=== PATIENT | female | born 1985 | race Two or more races ===

== ENCOUNTER 2020-11-16 11:26 | Emergency (ER) | payer MEDICAID ==
[~2020-11-16] VITALS: Ht 160 cm; Wt 111.6 kg
[2020-11-16 12:21] VITALS: BP 136/81
[2020-11-16] MEDS ORDERED: PENICILLIN G BENZ 1200000 UNITS/2 ML SYRG IM ONE (12:45)
== END 2020-11-16 13:30 | disposition home or self-care (01) ==
LOC: ER 11:26
DX: O26.892 Other specified pregnancy related conditions, second trimester (principal); O98.112 Syphilis complicating pregnancy, second trimester; Z3A.28 28 weeks gestation of pregnancy
CPT/HCPCS: 96372; 99283; J0561

== ENCOUNTER 2020-11-23 11:29 | Emergency (ER) | payer MEDICAID ==
[~2020-11-23] VITALS: Ht 154.9 cm; Wt 111.6 kg
[2020-11-23 12:18] VITALS: BP 145/88
[2020-11-23] MEDS ORDERED: PENICILLIN G BENZ 1200000 UNITS/2 ML SYRG IM ONE (12:45)
== END 2020-11-23 13:18 | disposition home or self-care (01) ==
LOC: ER 11:29
DX: O26.893 Other specified pregnancy related conditions, third trimester (principal); O98.113 Syphilis complicating pregnancy, third trimester; Z3A.34 34 weeks gestation of pregnancy
CPT/HCPCS: 96372; 99283; J0561

== ENCOUNTER 2020-11-30 08:58 | Emergency (ER) | payer MEDICAID ==
[~2020-11-30] VITALS: Ht 154.9 cm; Wt 111.6 kg
[2020-11-30 10:57] VITALS: BP 129/66
[2020-11-30] MEDS ORDERED: PENICILLIN G BENZ 1200000 UNITS/2 ML SYRG IM ONE (11:15)
== END 2020-11-30 12:13 | disposition home or self-care (01) ==
LOC: ER 08:58
DX: Z51.81 Encounter for therapeutic drug level monitoring (principal); O26.893 Other specified pregnancy related conditions, third trimester; A53.9 Syphilis, unspecified; Z3A.30 30 weeks gestation of pregnancy
CPT/HCPCS: 96372; 99283; J0561

== ENCOUNTER 2021-01-13 14:27 | Observation (INO) | payer MEDICAID | END 2021-01-13 15:40 | disposition home or self-care (01) | LOC: LDRP 14:27 | PROVIDERS: ADMIT Obstetrics & Gynecology; ATTEND Obstetrics & Gynecology | DX: O62.9 Abnormality of forces of labor, unspecified (principal); Z3A.37 37 weeks gestation of pregnancy; Z98.891 History of uterine scar from previous surgery | CPT/HCPCS: 59025; 81002; 94760; G0378 ==

== ENCOUNTER 2021-01-27 03:55 | Inpatient (IN) | payer MEDICAID ==
[2021-01-27] VITALS (18 sets, daily range): BP systolic 121–145; BP diastolic 55–94
[~2021-01-27] VITALS: Ht 154.9 cm; Wt 118.8 kg
[2021-01-27] MEDS ORDERED: ceFAZolin 1GM/50ML 50 ML IV ONE (04:15)
[2021-01-27] MEDS ORDERED: LACTATED RINGER'S 1,000 ML IV ONE (04:15)
[2021-01-27 05:47] LABS: Basophils # (auto) 0.1 10 ^3/uL (0-0.2); Basophils % (auto) 0.8 % (0.0-2.0); Eosinophils # (auto) 0.1 10 ^3/uL (0-0.8); Eosinophils % (auto) 1.4 % (0.0-7.0); Hematocrit 33.6 % (36.0-46.0); Hemoglobin 11.4 g/dL (12.2-16.2); Lymphocytes # (auto) 2.2 10 ^3/uL (0.4-5.4); Lymphocytes % (auto) 24.2 % (10.0-50.0); Mean Corpuscular Hemoglobin 28.6 pg (28.0-32.0); Mean Corpuscular Hgb Conc. 33.8 g/dL (32.0-36.0); Mean Corpuscular Volume 84.5 fL (80.0-100.0); Monocytes # (auto) 0.5 10 ^3/uL (0-1.3); Monocytes % (auto) 5.9 % (0.0-12.0); Neutrophils # (auto) 6.1 10 ^3/uL (1.6-8.6); Neutrophils % (auto) 67.7 % (37.0-80.0); Red Blood Cells 3.97 10^6/uL (4.0-5.20); Red Cell Distribution Width 15.5 % (11.8-14.3)
[2021-01-27] MEDS: LACTATED RINGER'S 1,000 ML IV SCH ×3 (05:48→19:41)
[2021-01-27 06:03] LABS: Urine Bacteria NONE SEEN /hpf (None Seen); Urine Blood Negative /uL (Negative); Urine Hyaline Cast FEW /lpf (0 - 2); Urine Mucus FEW (None Seen); Urine Specific Gravity 1.021 (1.001-1.035); Urine WBC 6 /hpf (0 - 5)
[2021-01-27 06:04] LABS: Albumin 1.9 g/dL (3.4-5.0); Calcium 8.5 mg/dL (8.5-10.1); Potassium 4.3 mmol/L (3.5-5.1)
[2021-01-27 06:08] LABS: Bilirubin, Total 0.2 mg/dL (0.2-1.0); Total Protein 6.3 g/dL (6.4-8.2)
[2021-01-27 06:11] LABS: INR 0.94 (0.9-1.15); Partial Thromboplastin Time 27.8 sec (23.6-33.0)
[2021-01-27 06:21] LABS: Alcohol, Urine < 3.0 mg/dL (0-10); Amphetamine Screen, Urine POSITIVE (NEGATIVE); Barbiturate Scree,Urine NEGATIVE (NEGATIVE); Benzodiazephine Screen, Urine NEGATIVE (NEGATIVE); Cannabinoid Screen, Urine NEGATIVE (NEGATIVE); Cocaine Screen, Urine NEGATIVE (NEGATIVE); Opiate Scree,Urine NEGATIVE (NEGATIVE); Phencyclidine Screen, Urine NEGATIVE (NEGATIVE)
[2021-01-27] MEDS ORDERED: TETRACAINE 1% INJ 2 ML VIAL IJ ONE (06:56)
[2021-01-27] MEDS ORDERED: SODIUM CITR/CITRIC ACID ORAL SOLN 30 ML ONE (07:18)
[2021-01-27] MEDS ORDERED: fentaNYL CITRATE 100 MCG/2 ML VL ONE (07:26)
[2021-01-27] MEDS ORDERED: MORPHINE SULF(PF) 0.5MG/ML 10ML VIAL ONE (07:26)
[2021-01-27] MEDS ORDERED: MIDAZOLAM HCL 2MG/2ML 2ml VIAL (1mg/ml) ONE (07:26)
[2021-01-27] MEDS ORDERED: SODIUM CITR/CITRIC ACID ORAL SOLN 30 ML PO ONE (08:00)
[2021-01-27] MEDS ORDERED: ceFAZolin 1GM/50ML 50 ML IV SCH (08:15)
[2021-01-27] MEDS ORDERED: LACT. RINGERS/OXYTOCIN 20UNITS 1,000 ML IV ONE (08:15)
[2021-01-27] MEDS ORDERED: ONDANSETRON HCL 4 MG/2 ML VIAL IV PRN ×2 (08:15→09:00)
[2021-01-27] MEDS ORDERED: POVIDONE IODINE 10 % TOPICAL OINT 30GM TOP ONE (08:28)
[2021-01-27] MEDS ORDERED: ePHEDrine SULFATE 50 MG/ML AMP ONE (08:37)
[2021-01-27] MEDS ORDERED: ceFAZolin 1GM VL ONE (08:37)
[2021-01-27] MEDS ORDERED: DexAMETHasone SOD PHOS 10MG/1ML VIAL INJ IV PRN (09:00)
[2021-01-27] MEDS ORDERED: NALBUPHINE HCL 10 MG/1ml INJECTION SUBCUT ONE (09:00)
[2021-01-27] MEDS ORDERED: KETOROLAC TROMETH 30 MG/ML 1ML VIAL IV PRN (09:00)
[2021-01-27] MEDS ORDERED: HYDROmorphone HCL 2 MG/ML VL IV PRN (09:00)
[2021-01-27] MEDS ORDERED: SODIUM CITR/CITRIC ACID ORAL SOLN 30 ML PO SCH (09:00)
[2021-01-27] MEDS ORDERED: NALOXONE HCL 0.4 MG/ML VIAL IV PRN (09:00)
[2021-01-27] MEDS ORDERED: ACETAMINOPHEN IV 1000 MG/100ML (10MG/ML) IV ONE (10:30)
[2021-01-27] MEDS: MORPHINE SULFATE 4 MG/ML SYR/VIAL IV PRN ×2 (12:26→16:28)
[2021-01-27] MEDS: ceFAZolin 1GM/50ML 50 ML IV SCH ×2 (16:15→23:55)
[2021-01-27 21:28] LABS: Basophils # (auto) 0.3 10 ^3/uL (0-0.2); Basophils % (auto) 2.3 % (0.0-2.0); Eosinophils # (auto) 0.1 10 ^3/uL (0-0.8); Eosinophils % (auto) 0.7 % (0.0-7.0); Hematocrit 38.3 % (36.0-46.0); Hemoglobin 12.3 g/dL (12.2-16.2); Lymphocytes # (auto) 1.2 10 ^3/uL (0.4-5.4); Lymphocytes % (auto) 9.8 % (10.0-50.0); Mean Corpuscular Hemoglobin 27.2 pg (28.0-32.0); Mean Corpuscular Hgb Conc. 32.2 g/dL (32.0-36.0); Mean Corpuscular Volume 84.4 fL (80.0-100.0); Monocytes # (auto) 0.6 10 ^3/uL (0-1.3); Monocytes % (auto) 4.7 % (0.0-12.0); Neutrophils # (auto) 10.3 10 ^3/uL (1.6-8.6); Neutrophils % (auto) 82.5 % (37.0-80.0); Red Blood Cells 4.54 10^6/uL (4.0-5.20); Red Cell Distribution Width 15.5 % (11.8-14.3); White Blood Cell 12.5 10^3/uL (4.4-10.8)
[2021-01-28] VITALS (13 sets, daily range): BP systolic 130–160; BP diastolic 74–91
[2021-01-28] MEDS: MORPHINE SULFATE 4 MG/ML SYR/VIAL IV PRN (01:14)
[2021-01-28] MEDS ORDERED: ACETAMINOPHEN 325 MG TAB PO ONE (03:00)
[2021-01-28] MEDS: LACTATED RINGER'S 1,000 ML IV SCH ×4 (04:23→07:00)
[2021-01-28] MEDS ORDERED: THROAT LOZENGES(CEPASTAT) MT PRN (04:30)
[2021-01-28] MEDS ORDERED: BISACODYL 10 MG RECT SUPP PR PRN (04:45)
[2021-01-28] MEDS ORDERED: THROAT LOZENGES(CEPASTAT) MT ONE (05:26)
[2021-01-28] MEDS: SIMETHICONE 80 MG CHEWABLE TABLET PO SCH ×4 (05:52→22:27)
[2021-01-28 06:52] LABS: Basophils # (auto) 0.1 10 ^3/uL (0-0.2); Basophils % (auto) 0.5 % (0.0-2.0); Eosinophils # (auto) 0 10 ^3/uL (0-0.8); Eosinophils % (auto) 0.3 % (0.0-7.0); Hemoglobin 12.2 g/dL (12.2-16.2); Lymphocytes # (auto) 1.6 10 ^3/uL (0.4-5.4); Lymphocytes % (auto) 12.9 % (10.0-50.0); Mean Corpuscular Hemoglobin 28.5 pg (28.0-32.0); Mean Corpuscular Hgb Conc. 33.9 g/dL (32.0-36.0); Mean Corpuscular Volume 84.1 fL (80.0-100.0); Monocytes # (auto) 0.7 10 ^3/uL (0-1.3); Monocytes % (auto) 5.7 % (0.0-12.0); Neutrophils # (auto) 9.9 10 ^3/uL (1.6-8.6); Neutrophils % (auto) 80.6 % (37.0-80.0); Red Blood Cells 4.29 10^6/uL (4.0-5.20); Red Cell Distribution Width 15.8 % (11.8-14.3); White Blood Cell 12.3 10^3/uL (4.4-10.8)
[2021-01-28] MEDS: ceFAZolin 1GM/50ML 50 ML IV SCH ×3 (07:33→22:27)
[2021-01-28] MEDS: IBUPROFEN 800 MG TAB PO PRN ×2 (07:33→15:28)
[2021-01-28] MEDS ORDERED: PREN-96 PO (07:39)
[2021-01-28] MEDS: diphenhdrAMINE HCL 50 MG/1 ML VL IV PRN ×2 (08:13→12:44)
[2021-01-28] MEDS ORDERED: HYDROcodone-ACET 5/325MG TAB PO PRN (08:15)
[2021-01-28] MEDS: DOCUSATE SOD 100 MG CAP PO SCH ×2 (10:30→22:27)
[2021-01-28] MEDS: HYDROcodone-ACET 5/325MG TAB PO PRN ×3 (12:43→21:20)
[2021-01-28] MEDS: FAMOTIDINE (10MG/ML) 2ML VL IV SCH (22:27)
[2021-01-29] MEDS: methylPREDNISolone SOD SUCC 40 MG/ML VL IV SCH ×3 (00:15→11:57)
[2021-01-29] MEDS: IBUPROFEN 800 MG TAB PO PRN ×3 (00:15→22:12)
[2021-01-29] MEDS: HYDROcodone-ACET 5/325MG TAB PO PRN (03:36)
[2021-01-29] MEDS: ceFAZolin 1GM/50ML 50 ML IV SCH ×3 (06:31→22:10)
[2021-01-29] MEDS: SIMETHICONE 80 MG CHEWABLE TABLET PO SCH ×4 (06:31→22:10)
[2021-01-29 07:00] VITALS: BP 148/80
[2021-01-29] MEDS: FAMOTIDINE (10MG/ML) 2ML VL IV SCH ×2 (10:12→22:10)
[2021-01-29] MEDS: DOCUSATE SOD 100 MG CAP PO SCH ×2 (10:13→22:10)
[2021-01-29 11:00] VITALS: BP 157/83
[2021-01-29 15:00] VITALS: BP 140/74
[2021-01-29 19:00] VITALS: BP 152/82
[2021-01-29 23:13] VITALS: BP 154/89
[2021-01-30 03:00] VITALS: BP 138/79
[2021-01-30] MEDS: ceFAZolin 1GM/50ML 50 ML IV SCH (05:36)
[2021-01-30] MEDS: SIMETHICONE 80 MG CHEWABLE TABLET PO SCH (05:37)
[2021-01-30 07:30] VITALS: BP 147/81
[2021-01-30] MEDS ORDERED: HYDR-4902 PO (09:23)
[2021-01-30] MEDS ORDERED: DOCU-94 PO (09:26)
[2021-01-30] MEDS ORDERED: ONDA-144 PO (09:26)
[2021-01-30] MEDS ORDERED: IBUP600T27 PO (09:28)
[2021-01-30 10:17] VITALS: BP 138/70
== END 2021-01-30 10:17 | disposition home or self-care (01) | DRG 539 ==
LOC: LDRP 03:55
PROVIDERS: ADMIT Obstetrics & Gynecology; ATTEND Obstetrics & Gynecology
PROC: 0UL70CZ Occlusion of Bilateral Fallopian Tubes with Extraluminal Device, Open Approach (ICD-10-PCS; 2021-01-27)
PROC: 10D00Z1 Extraction of Products of Conception, Low, Open Approach (ICD-10-PCS; principal; 2021-01-27 07:26)
DX: O34.211 Maternal care for low transverse scar from previous cesarean delivery (principal); O99.324 Drug use complicating childbirth; F15.90 Other stimulant use, unspecified, uncomplicated; Z20.822 Contact with and (suspected) exposure to COVID-19; Z3A.39 39 weeks gestation of pregnancy; Z37.0 Single live birth; Z30.2 Encounter for sterilization
CPT/HCPCS: 36415; 59025; 80053; 80307; 81001; 81002; 84112; 85025; 85610; 85730; 86592; 86850; 86900; 86901; 87070; 87081; 87205; 87880; 92610; 94760; 94762; 96360; 96361; 96365; 96366; 96374; 96375; G0378; J0131; J0690; J2250; J3490

== ENCOUNTER 2021-02-08 22:36 | Emergency (ER) | payer MEDICAID ==
[~2021-02-08] VITALS: Ht 154.9 cm; Wt 111.1 kg
[~2021-02-08 22:36] MED LIST: DOCU-94 PO; HYDR-4902 PO; IBUP600T27 PO; ONDA-144 PO; PREN-96 PO
[2021-02-08 22:40] VITALS: BP 132/72
== END 2021-02-09 01:51 | disposition left against medical advice (07) ==
LOC: ER 22:36
DX: J11.1 Influenza due to unidentified influenza virus with other respiratory manifestations (principal); R50.9 Fever, unspecified; Z53.21 Procedure and treatment not carried out due to patient leaving prior to being seen by health care provider

== ENCOUNTER → 2021-06-10 | Outpatient (CLI) | payer MEDICAID ==
[~2021-06-10] VITALS: Ht 154.9 cm; Wt 116.6 kg
== END | disposition home or self-care (01) ==
LOC: Rad HDHVI 12:46
PROVIDERS: ATTEND Internal Medicine
DX: Z01.810 Encounter for preprocedural cardiovascular examination (principal); I10 Essential (primary) hypertension
CPT/HCPCS: 78452; 93017; 96374; A9500